=== PATIENT | female | born 1985 | race Caucasian/White ===

== ENCOUNTER 2022-02-10 00:50 | Emergency (ER) | payer SELFPAY ==
[2022-02-10] MEDS ORDERED: Ondansetron 4 MG Tab.DIS PO ONE (00:55)
[2022-02-10] MEDS ORDERED: Ondansetron 4 MG/2 ML SDV IM ONE (00:57)
== END 2022-02-10 01:11 | disposition home or self-care (01) ==
LOC: FB.ED 00:50
DX: F10.10 Alcohol abuse, uncomplicated (principal); F17.210 Nicotine dependence, cigarettes, uncomplicated; E66.9 Obesity, unspecified; Z68.29 Body mass index [BMI] 29.0-29.9, adult; Z88.8 Allergy status to other drugs, medicaments and biological substances; Z88.6 Allergy status to analgesic agent; Z88.5 Allergy status to narcotic agent
CPT/HCPCS: 96372; 99282; 99283; J2405